=== PATIENT | female | born 1975 | race Caucasian/White ===

== ENCOUNTER 2020-10-08 04:01 | Emergency (ER) | payer OTHER, BC ==
[2020-10-08] MEDS ORDERED: ACETAMINOPHEN 325 MG TABLET PO ONE (04:27)
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
[2020-10-08 05:20] VITALS: BP 146/73
== END 2020-10-08 05:21 | disposition home or self-care (01) ==
LOC: ER 04:01
DX: S80.10XA Contusion of unspecified lower leg, initial encounter (principal); M79.604 Pain in right leg; M79.605 Pain in left leg; V87.7XXA Person injured in collision between other specified motor vehicles (traffic), initial encounter; Z87.891 Personal history of nicotine dependence
CPT/HCPCS: 99283